=== PATIENT | female | born 1970 | race Caucasian/White ===

== ENCOUNTER 2017-07-21 14:16 | Emergency (ER) | payer OTHER ==
[~2017-07-21] VITALS: Ht 167.6 cm; Wt 43.6 kg
[~2017-07-21 14:16] MED LIST: ACET500C OR; IMIT100T OR; LEVA750T OR
[2017-07-21] MEDS ORDERED: EXCETAB80 PO (14:31)
[2017-07-21 15:20] LABS: BASO % 0.6 % (0.0-1.0); EOS # 0.1 K/mm3 (0.0-0.50); EOS % 1.4 % (0.0-3.0); LARGE UNSTAINED CELL # 0.1 K/mm3 (0.0-0.4); LARGE UNSTAINED CELL % 1.9 % (0.0-4.0); LYMPH # 2.1 K/mm3 (1.5-4.5); LYMPH % 38.9 % (24.0-44.0); MEAN CORPUSCULAR HEMOGLOBIN 33.2 pg (27.0-33.0); MEAN CORPUSCULAR HGB CONC 34.8 g/dl (32.0-36.5); MEAN CORPUSCULAR VOLUME 95.6 fl (80.0-96.0); MONO # 0.3 K/mm3 (0.0-0.8); NEUTROPHILS # 2.8 K/mm3 (1.8-7.7); NEUTROPHILS % 51.3 % (36.0-66.0); PLATELET COUNT, AUTOMATED 204 k/mm3 (150-450); RED CELL DISTRIBUTION WIDTH 12.4 % (11.5-14.5); WHITE BLOOD COUNT 5.5 K/mm3 (4.0-10.0)
[2017-07-21 16:45] LABS: ALBUMIN 3.8 GM/DL (3.2-5.2); ALBUMIN/GLOBULIN RATIO 1.31 (1.00-1.93); ALKALINE PHOSPHATASE 64 U/L (45-117); ALT/SGPT 14 U/L (12-78); ANION GAP 6 MEQ/L (8-16); AST/SGOT 11 U/L (15-37); BILIRUBIN,DIRECT < 0.1 MG/DL (0.0-0.2); BILIRUBIN,TOTAL 0.3 MG/DL (0.2-1.0); BLOOD UREA NITROGEN 8 MG/DL (7-18); CALCIUM LEVEL 9.4 MG/DL (8.5-10.1); CARBON DIOXIDE LEVEL 27 MEQ/L (21-32); CHLORIDE LEVEL 108 MEQ/L (98-107); CREATININE FOR GFR 0.63 MG/DL (0.55-1.02); GLOMERULAR FILTRATION RATE > 60.0 (>58); GLUCOSE, FASTING 89 MG/DL (70-105); SODIUM LEVEL 141 MEQ/L (136-145); TOTAL PROTEIN 6.7 GM/DL (6.4-8.2)
[2017-07-21 17:55] VITALS: BP 104/53
--- NOTE | 2017-07-22 06:46 | REP ---
CHEST, TWO VIEWS: COMPARISON: 05/03/2012. There is no evidence of acute infiltrate. No pleural effusion is seen. The heart is normal in size. The mediastinal silhouette is unremarkable. The visualized osseous structures are intact. IMPRESSION: No acute pulmonary disease. Signed by Ventura Pacheco MD 07/22/2017 05:25 P
--- NOTE | 2017-07-22 08:31 | ECGEPIP ---
Stationary ECG Study 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
[2017-07-22 10:35] LABS: FOLATE > 24.0 NG/ML; VITAMIN B12 LEVEL 214 PG/ML
== END 2017-07-21 18:17 | disposition home or self-care (01) ==
LOC: M ED 14:16
DX: R06.00 Dyspnea, unspecified (principal); K21.9 Gastro-esophageal reflux disease without esophagitis; E78.9 Disorder of lipoprotein metabolism, unspecified; F17.210 Nicotine dependence, cigarettes, uncomplicated; Z82.49 Family history of ischemic heart disease and other diseases of the circulatory system; Z88.0 Allergy status to penicillin

== ENCOUNTER → 2017-07-30 | Outpatient (CLI) | payer OTHER ==
[~2017-07-30] MED LIST changes: +EXCETAB80 PO; +ISOVUE-370 76% 100ML VIAL (Q9967) As Ordered ONE
--- NOTE | 2017-07-30 13:27 | REP ---
MAXILLOFACIAL CT WITH CONTRAST: HISTORY: Facial swelling. CONTRAST: Isovue-370, 75 mL. The sinuses are clear. The osteomeatal units are patent. The middle and inferior nasal turbinates are partially paradoxical. 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 There is mild deviation of the nasal septum to the right. The nasal septum abuts the right inferior nasal turbinate. The cribriform plate, medial ortiz of the orbits, and optic canals are intact. The carotid canals form a segment of the posterolateral ortiz of the sphenoid sinus. Soft tissue swelling is present over the right orbit and maxillary sinus. IMPRESSION: 1. There is no acute or chronic sinusitis. 2. Right facial soft tissue swelling. Signed by Addison Lee MD 07/30/2017 01:45 P
== END ==
LOC: M RAD 11:33
PROVIDERS: ATTEND Nurse Practitioner Family
DX: L03.211 Cellulitis of face (principal)
CPT/HCPCS: 70481; Q9967

== ENCOUNTER 2017-10-28 13:05 | Emergency (ER) | payer OTHER ==
[2017-10-28] MEDS: LORATADINE 10 MG TAB PO (17:19)
[2017-10-28] MEDS: AZITHROMYCIN 250 MG TAB PO (17:19)
[2017-10-28] MEDS: OXYMETAZOLINE NASAL SPRAY (AFRIN) (17:20)
== END 2017-10-28 17:33 | disposition home or self-care (01) ==
LOC: M ED 13:05
DX: H66.93 Otitis media, unspecified, bilateral (principal); J01.90 Acute sinusitis, unspecified; J45.909 Unspecified asthma, uncomplicated; J44.9 Chronic obstructive pulmonary disease, unspecified; F17.210 Nicotine dependence, cigarettes, uncomplicated; Z88.0 Allergy status to penicillin
CPT/HCPCS: 99283

== ENCOUNTER → 2017-12-27 | Outpatient (REF) | payer OTHER ==
[2017-12-27 12:20] LABS: HEMATOCRIT 41.8 % (36.0-47.0); HEMOGLOBIN 13.6 g/dl (12.0-16.0); MEAN CORPUSCULAR HEMOGLOBIN 30.8 pg (27.0-33.0); MEAN CORPUSCULAR HGB CONC 32.5 g/dl (32.0-36.5); MEAN CORPUSCULAR VOLUME 94.6 fl (80.0-96.0); PLATELET COUNT, AUTOMATED 217 10^3/uL (150-450); RED BLOOD COUNT 4.42 10^6/uL (4.00-5.40); RED CELL DISTRIBUTION WIDTH 13.2 % (11.5-14.5); WHITE BLOOD COUNT 8.3 10^3/uL (4.0-10.0)
[2017-12-27 12:40] LABS: ALBUMIN 4.1 GM/DL (3.2-5.2); ALBUMIN/GLOBULIN RATIO 1.41 (1.00-1.93); ALKALINE PHOSPHATASE 65 U/L (45-117); ALT/SGPT 18 U/L (12-78); ANION GAP 4 MEQ/L (8-16); AST/SGOT 15 U/L (7-37); BILIRUBIN,TOTAL 0.3 MG/DL (0.2-1.0); BLOOD UREA NITROGEN 12 MG/DL (7-18); CALCIUM LEVEL 9.1 MG/DL (8.5-10.1); CARBON DIOXIDE LEVEL 31 MEQ/L (21-32); CHLORIDE LEVEL 107 MEQ/L (98-107); CREATININE FOR GFR 0.76 MG/DL (0.55-1.30); GLOMERULAR FILTRATION RATE > 60.0 (>58); GLUCOSE, FASTING 76 MG/DL (70-100); POTASSIUM SERUM 4.3 MEQ/L (3.5-5.1); SODIUM LEVEL 142 MEQ/L (136-145)
[2017-12-27 12:57] LABS: ERYTHROCYTE SEDIMENTATION RATE 8 mm/hr (0-20)
== END ==
LOC: M SFHCPLAZ 08:38
DX: M54.41 Lumbago with sciatica, right side (principal)

== ENCOUNTER → 2018-04-11 | Outpatient (CLI) | payer OTHER | LOC: M WUC 18:50 | DX: S20.212A Contusion of left front wall of thorax, initial encounter (principal); R50.9 Fever, unspecified; R05 Cough; R91.8 Other nonspecific abnormal finding of lung field | CPT/HCPCS: 71046 ==

== ENCOUNTER → 2020-11-12 | Outpatient (CLI) | payer SELFPAY ==
[~2020-11-12] MED LIST changes: +AFRI0.056; +AZIT-12 PO; +CEFD1CAP8; +CLAR1TAB2 PO; -ISOVUE-370 76% 100ML VIAL (Q9967) As Ordered ONE
== END ==
LOC: M LABSMTC 11:42
PROVIDERS: ATTEND Pediatrics
DX: Z20.822 Contact with and (suspected) exposure to COVID-19 (principal)

== ENCOUNTER 2023-03-03 19:27 | Emergency (ER) | payer OTHER, SELFPAY ==
[~2023-03-03] VITALS: Ht 165.1 cm; Wt 48.0 kg
[~2023-03-03 19:27] MED LIST changes: -CEFD1CAP8; +CEFD300C41
[2023-03-03 20:42] LABS: RSV AMPLIFICATION NEGATIVE (NEGATIVE)
[2023-03-03] MEDS ORDERED: IPRATROPIUM 0.5MG/ALBUTEROL 2.5MG INH SOL UD 3ML (DUONEB) NEB ONE (20:55)
[2023-03-03 21:30] VITALS: O2SAT 98
[2023-03-03 21:54] VITALS: BP 120/59
== END 2023-03-03 22:00 | disposition home or self-care (01) ==
LOC: M ED 19:27
DX: J06.9 Acute upper respiratory infection, unspecified (principal); B34.9 Viral infection, unspecified; J45.909 Unspecified asthma, uncomplicated; J44.9 Chronic obstructive pulmonary disease, unspecified; F17.200 Nicotine dependence, unspecified, uncomplicated; Z88.0 Allergy status to penicillin

== ENCOUNTER 2023-03-06 09:19 | Emergency (ER) | payer OTHER ==
[~2023-03-06] VITALS: Ht 165.1 cm; Wt 47.5 kg
[2023-03-06] MEDS ORDERED: methylPREDNISolone 125MG 2ML VIAL IV ONE (10:25)
[2023-03-06 11:00] LABS: BASO % 0.4 % (0.0-1.0); EOS # 0.1 10^3/uL (0.0-0.5); EOS % 0.9 % (0.0-3.0); HEMATOCRIT 41.5 % (36.0-47.0); HEMOGLOBIN 14.1 g/dl (12.0-15.5); LYMPH % 28.7 % (24.0-44.0); MEAN CORPUSCULAR VOLUME 94.3 fl (80.0-96.0); MONO # 0.5 10^3/uL (0.0-0.8); MONO % 7.2 % (2.0-8.0); NEUTROPHILS # 4.4 10^3/uL (1.5-8.5); NEUTROPHILS % 62.7 % (36.0-66.0); PLATELET COUNT, AUTOMATED 211 10^3/uL (150-450); WHITE BLOOD COUNT 7.1 10^3/uL (4.0-10.0)
[2023-03-06] MEDS ORDERED: ISOVUE-370 76% 100ML VIAL As Ordered ONE (11:35)
[2023-03-06 12:33] VITALS: BP 127/78
[2023-03-06 12:38] VITALS: O2SAT 98
[2023-03-06] MEDS ORDERED: DOXY100C81 PO (12:44)
== END 2023-03-06 12:56 | disposition home or self-care (01) ==
LOC: M ED 09:19
DX: J18.1 Lobar pneumonia, unspecified organism (principal); J44.9 Chronic obstructive pulmonary disease, unspecified; F17.210 Nicotine dependence, cigarettes, uncomplicated; Z88.0 Allergy status to penicillin
CPT/HCPCS: 71275; 80047; 83880; 85025; 93005; 96374; 99284; J2930; Q9967

== ENCOUNTER → 2023-03-21 | Outpatient (CLI) | payer OTHER ==
[~2023-03-21] MED LIST changes: +DOXY100C81 PO
[2023-03-21 14:41] LABS: THYROID STIMULATING HORMONE 1.753 uIU/ML (0.55-4.78)
[2023-03-21 14:42] LABS: ALBUMIN 3.9 G/DL (3.2-5.2); ALKALINE PHOSPHATASE 57 U/L (46-116); ALT/SGPT 19 U/L (7.0-40); AST/SGOT 17 U/L (<34); BILIRUBIN,TOTAL 0.3 MG/DL (0.3-1.2); BLOOD UREA NITROGEN 11 MG/DL (9-23); CALCIUM LEVEL 9.9 MG/DL (8.5-10.1); CARBON DIOXIDE LEVEL 30 MMOL/L (20-31); CHLORIDE LEVEL 108 MMOL/L (98-107); CREATININE FOR GFR 0.64 MG/DL (0.55-1.30); GLOMERULAR FILTRATION RATE > 60.0 (>51); GLUCOSE, FASTING 89 MG/DL (60-100); POTASSIUM SERUM 4.6 MMOL/L (3.5-5.1); SODIUM LEVEL 143 MMOL/L (136-145); TOTAL PROTEIN 6.4 G/DL (5.7-8.2)
[2023-03-21 14:44] LABS: VITAMIN B12 LEVEL 337 PG/ML (211-911)
[2023-03-21 14:52] LABS: BASO # 0.1 10^3/uL (0.0-0.2); BASO % 0.9 % (0.0-1.0); EOS # 0.1 10^3/uL (0.0-0.5); LYMPH # 2.3 10^3/uL (1.5-5.0); LYMPH % 39.3 % (24.0-44.0); MEAN CORPUSCULAR HEMOGLOBIN 32.2 pg (27.0-33.0); MEAN CORPUSCULAR HGB CONC 33.3 g/dl (32.0-36.5); MEAN CORPUSCULAR VOLUME 96.5 fl (80.0-96.0); MONO # 0.5 10^3/uL (0.0-0.8); MONO % 8.5 % (2.0-8.0); NEUTROPHILS # 2.9 10^3/uL (1.5-8.5); PLATELET COUNT, AUTOMATED 227 10^3/uL (150-450); RED BLOOD COUNT 4.04 10^6/uL (4.00-5.40); WHITE BLOOD COUNT 5.8 10^3/uL (4.0-10.0)
== END ==
LOC: M PLALAB 10:58
PROVIDERS: ATTEND Family Medicine
DX: E53.8 Deficiency of other specified B group vitamins (principal)

== ENCOUNTER → 2023-03-26 | Outpatient (CLI) | payer OTHER | LOC: M PLAIMG 13:54 | PROVIDERS: ATTEND Family Medicine | DX: R91.8 Other nonspecific abnormal finding of lung field (principal) ==

== ENCOUNTER → 2023-06-30 | Outpatient (CLI) | payer OTHER ==
[~2023-06-30] MED LIST changes: -DOXY100C81 PO; +DOXY100C82 PO
[2023-06-30 13:30] LABS: BASO % 0.6 % (0.0-1.0); EOS # 0.1 10^3/uL (0.0-0.5); EOS % 1.6 % (0.0-3.0); HEMATOCRIT 39.6 % (36.0-47.0); HEMOGLOBIN 13.1 g/dl (12.0-15.5); LYMPH # 2.1 10^3/uL (1.5-5.0); LYMPH % 42.9 % (24.0-44.0); MEAN CORPUSCULAR HGB CONC 33.1 g/dl (32.0-36.5); MEAN CORPUSCULAR VOLUME 96.6 fl (80.0-96.0); MONO # 0.5 10^3/uL (0.0-0.8); NEUTROPHILS # 2.2 10^3/uL (1.5-8.5); NEUTROPHILS % 44.7 % (36.0-66.0); PLATELET COUNT, AUTOMATED 230 10^3/uL (150-450); WHITE BLOOD COUNT 4.9 10^3/uL (4.0-10.0)
[2023-06-30 13:41] LABS: INR 0.98; PROTHROMBIN TIME 12.7 SECONDS (12.5-14.5)
[2023-06-30 13:42] LABS: PARTIAL THROMBOPLASTIN TIME 33.3 SECONDS (24.8-34.2)
[2023-06-30 13:44] LABS: ERYTHROCYTE SEDIMENTATION RATE 16 mm/hr (0-30)
[2023-06-30 13:45] LABS: D-DIMER QUANT 0.41 ug/mL (<0.5)
[2023-06-30 13:58] LABS: LDH LACTATE DEHYDROGENASE 233 U/L (120-246)
[2023-06-30 13:59] LABS: ALBUMIN 4.1 G/DL (3.2-5.2); ALKALINE PHOSPHATASE 57 U/L (46-116); ALT/SGPT 12 U/L (7.0-40); AST/SGOT 14 U/L (<34); BILIRUBIN,TOTAL 0.4 MG/DL (0.3-1.2); BLOOD UREA NITROGEN 11 MG/DL (9-23); CALCIUM LEVEL 9.7 MG/DL (8.5-10.1); CARBON DIOXIDE LEVEL 27 MMOL/L (20-31); CHLORIDE LEVEL 108 MMOL/L (98-107); CREATININE FOR GFR 0.74 MG/DL (0.55-1.30); GLOMERULAR FILTRATION RATE > 60.0 (>51); GLUCOSE, FASTING 88 MG/DL (60-100); POTASSIUM SERUM 5.1 MMOL/L (3.5-5.1); SODIUM LEVEL 143 MMOL/L (136-145); TOTAL PROTEIN 6.7 G/DL (5.7-8.2)
== END ==
LOC: M RAD 12:46
DX: M25.562 Pain in left knee (principal); R23.3 Spontaneous ecchymoses

== ENCOUNTER → 2023-07-17 | Outpatient (CLI) | payer OTHER | LOC: M RAD 10:23 | PROVIDERS: ATTEND Internal Medicine Pulmonary Disease | DX: R91.8 Other nonspecific abnormal finding of lung field (principal) ==

== ENCOUNTER → 2024-01-15 | Outpatient (REF) | payer OTHER ==
[~2024-01-15] MED LIST changes: +CEFD1CAP9; -CEFD300C41
== END ==
LOC: M SFHCPLAZ 12:56
PROVIDERS: ATTEND Physician Assistant
DX: R50.9 Fever, unspecified (principal)

== ENCOUNTER → 2024-02-06 | Outpatient (CLI) | payer OTHER | LOC: M RAD 10:02 | PROVIDERS: ATTEND Family Medicine | DX: R25.2 Cramp and spasm (principal) ==

== ENCOUNTER → 2024-02-07 | Outpatient (CLI) | payer OTHER | LOC: M SOG 14:56 | PROVIDERS: ATTEND Orthopaedic Surgery | DX: M54.2 Cervicalgia (principal); M51.36 Other intervertebral disc degeneration, lumbar region ==

== ENCOUNTER → 2024-02-26 | Outpatient (CLI) | payer OTHER | LOC: M PLAIMG 13:16 | PROVIDERS: ATTEND Orthopaedic Surgery | DX: M62.81 Muscle weakness (generalized) (principal) ==

== ENCOUNTER → 2024-02-27 | Outpatient (CLI) | payer OTHER | LOC: M RAD 15:29 | PROVIDERS: ATTEND Internal Medicine Pulmonary Disease | DX: R91.8 Other nonspecific abnormal finding of lung field (principal) ==

== ENCOUNTER → 2024-03-24 | Outpatient (CLI) | payer OTHER | LOC: M PLARAD 10:10 | PROVIDERS: ATTEND Internal Medicine Pulmonary Disease | DX: R91.8 Other nonspecific abnormal finding of lung field (principal) | CPT/HCPCS: 78815; A9552 ==

== ENCOUNTER → 2024-04-05 | Outpatient (REF) | payer OTHER | LOC: M LAB REF 17:38 | PROVIDERS: ATTEND Physician Assistant Medical | DX: J02.9 Acute pharyngitis, unspecified (principal) ==

== ENCOUNTER → 2024-08-14 | Outpatient (CLI) | payer OTHER | LOC: M WUC 12:20 | PROVIDERS: ATTEND Physician Assistant | DX: M25.521 Pain in right elbow (principal) ==

== ENCOUNTER → 2024-08-21 | Outpatient (CLI) | payer OTHER | LOC: M PLAIMG 06:35 | PROVIDERS: ATTEND Physician Assistant Surgical | DX: M25.521 Pain in right elbow (principal) ==

== ENCOUNTER → 2024-08-21 | Outpatient (CLI) | payer OTHER ==
[2024-08-21 11:56] LABS: HEMOGLOBIN A1c 5.3 % (4.0-6.0)
[2024-08-21 12:06] LABS: ALBUMIN 3.9 G/DL (3.2-5.2); ALKALINE PHOSPHATASE 68 U/L (35-104); ALT/SGPT 11 U/L (7.0-40); AST/SGOT 9 U/L (<34); BILIRUBIN,TOTAL 0.4 MG/DL (0.3-1.2); BLOOD UREA NITROGEN 17 MG/DL (9-23); CALCIUM LEVEL 10.4 MG/DL (8.5-10.1); CARBON DIOXIDE LEVEL 30 MMOL/L (20-31); CHLORIDE LEVEL 106 MMOL/L (98-107); CHOLESTEROL LEVEL 246 MG/DL (<200); CREATININE FOR GFR 0.88 MG/DL (0.55-1.30); GLOMERULAR FILTRATION RATE > 60.0 (>51); GLUCOSE, FASTING 97 MG/DL (60-100); HDL CHOLESTEROL 57.1 MG/DL (>40); LDL CHOLESTEROL 168.3 MG/DL (<100); MAGNESIUM LEVEL 2.1 MG/DL (1.8-2.4); NON-HDL-C 188.9 MG/DL; POTASSIUM SERUM 4.2 MMOL/L (3.5-5.1); SODIUM LEVEL 140 MMOL/L (136-145); TRIGLYCERIDES LEVEL 103 MG/DL (<150)
[2024-08-21 12:10] LABS: THYROID STIMULATING HORMONE 2.769 uIU/ML (0.55-4.78)
[2024-08-23 03:13] LABS: LDL DIRECT 172 mg/dL (<100)
[2024-08-26 07:37] LABS: NT PRO BNP SO < 36 pg/mL (<125)
== END ==
LOC: M PLALAB 07:25
PROVIDERS: ATTEND Internal Medicine Cardiovascular Disease
DX: R06.00 Dyspnea, unspecified (principal)

== ENCOUNTER → 2024-09-14 | Outpatient (CLI) | payer OTHER ==
[2024-09-14 18:14] LABS: C REACTIVE PROTEIN QUANTITATIV < 0.40 MG/DL (<1.0)
[2024-09-14 18:16] LABS: ALKALINE PHOSPHATASE 63 U/L (35-104); ALT/SGPT 18 U/L (7.0-40); AST/SGOT 12 U/L (<34); BILIRUBIN,TOTAL 0.3 MG/DL (0.3-1.2); BLOOD UREA NITROGEN 15 MG/DL (9-23); CARBON DIOXIDE LEVEL 30 MMOL/L (20-31); CHLORIDE LEVEL 105 MMOL/L (98-107); CPK CREATINE PHOSPHOKINASE 72 U/L (34-145); CREATININE FOR GFR 0.67 MG/DL (0.55-1.30); GLOMERULAR FILTRATION RATE > 60.0 (>51); GLUCOSE, FASTING 115 MG/DL (60-100); MAGNESIUM LEVEL 1.9 MG/DL (1.8-2.4); POTASSIUM SERUM 3.9 MMOL/L (3.5-5.1); SODIUM LEVEL 139 MMOL/L (136-145); TOTAL PROTEIN 7.3 G/DL (5.7-8.2)
== END ==
LOC: M LAB 17:18
PROVIDERS: ATTEND Internal Medicine Cardiovascular Disease
DX: R06.09 Other forms of dyspnea (principal)

== ENCOUNTER → 2024-09-21 | Outpatient (CLI) | payer OTHER | LOC: M RAD 12:45 | PROVIDERS: ATTEND Internal Medicine Pulmonary Disease | DX: R91.8 Other nonspecific abnormal finding of lung field (principal) ==

== ENCOUNTER → 2024-09-22 | Outpatient (REF) | payer OTHER | LOC: M SFHCWAGY 13:09 | PROVIDERS: ATTEND Family Medicine | DX: Z12.4 Encounter for screening for malignant neoplasm of cervix (principal) ==

== ENCOUNTER → 2024-10-07 | Outpatient (CLI) | payer OTHER | LOC: M WHC 15:24 | PROVIDERS: ATTEND Family Medicine | DX: Z12.31 Encounter for screening mammogram for malignant neoplasm of breast (principal) ==

== ENCOUNTER → 2024-10-15 | Outpatient (CLI) | payer OTHER ==
[~2024-10-15] MED LIST changes: +METHACHOLINE KIT (6 VIAL.NEB PREMIX) INH ONE
== END ==
LOC: M CARPUL 14:16
PROVIDERS: ATTEND Internal Medicine Pulmonary Disease
DX: R06.02 Shortness of breath (principal)

== ENCOUNTER → 2025-07-23 | Outpatient (REF) | payer OTHER ==
[~2025-07-23] MED LIST changes: +DOXY-442 PO; -DOXY100C82 PO; -METHACHOLINE KIT (6 VIAL.NEB PREMIX) INH ONE
== END ==
LOC: M SFHCPLAZ 09:05
PROVIDERS: ATTEND Family Medicine
DX: N87.0 Mild cervical dysplasia (principal)

== ENCOUNTER 2025-08-01 17:15 | Emergency (ER) | payer OTHER ==
[~2025-08-01] VITALS: Ht 167.6 cm; Wt 53.2 kg
[2025-08-01 17:19] VITALS: TEMP 97.6
[2025-08-01] MEDS ORDERED: ASPI-226 (17:29)
[2025-08-01] MEDS ORDERED: PRAV40TA85 (17:29)
[2025-08-01 20:27] VITALS: BP 119/53; O2SAT 96
== END 2025-08-01 21:22 | disposition home or self-care (01) ==
LOC: M ED 17:15
DX: S93.401A Sprain of unspecified ligament of right ankle, initial encounter (principal); R22.41 Localized swelling, mass and lump, right lower limb; Y92.833 Campsite as the place of occurrence of the external cause; Y93.9 Activity, unspecified; Y99.9 Unspecified external cause status; W01.0XXA Fall on same level from slipping, tripping and stumbling without subsequent striking against object, initial encounter; E78.5 Hyperlipidemia, unspecified; Z88.0 Allergy status to penicillin; Z79.1 Long term (current) use of non-steroidal anti-inflammatories (NSAID); Z79.899 Other long term (current) drug therapy